=== PATIENT | male | born 1965 | race Caucasian/White ===

== ENCOUNTER 2017-06-26 15:42 | Emergency (ER) | payer BC ==
[2017-06-26 16:32] VITALS: BP 122/78
[2017-06-26] MEDS ORDERED: DOXYcycline CAP(*) 100 MG PO ONE (16:45)
--- NOTE | 2017-06-26 17:19 | UC ---
General HPI - HPI Summary HPI Summary: TODAY [id number] TICK FROM LEFT AXILLA. NO FEVER. NO JOINT PAIN. NO RASHES. TICK MAY HAVE BEEN THERE FOR TWO DAYS. - History of Current Complaint Chief Complaint: CRISTELAkin Stated Complaint: TICK Time Seen by Provider: 06/26/17 16:20 Hx Obtained From: Patient Onset/Duration: Sudden Onset, Lasting Days, Resolved Onset Severity: Mild Current Severity: None Pain Intensity: 0 Associated Signs & Symptoms: Negative: Abdominal Pain, Cough, Chest Pain, Dizziness, Fever, Headache, Nausea, Syncope, Trauma - Allergy/Home Medications Allergies/Adverse Reactions: Allergies Allergy/AdvReac Type Severity Reaction Status Date / Time No Known Allergies Allergy Verified 06/26/17 16:26 Home Medications: Home Medications NK [No Home Medications Reported] 06/26/17 [History Confirmed 06/26/17] PMH/Surg Hx/FS Hx/Imm Hx Previously Healthy: Yes - Surgical History Surgical History: Yes Surgery Procedure, Year, and Place: KNEE SURGERY AGE 16 - Family History Known Family History: Negative: Blood Disorder - Social History Occupation: Employed Full-time Lives: With Family Alcohol Use: Weekly Substance Use Type: None Smoking Status (MU): Current Some Day Smoker Type: Cigars Review of Systems Constitutional: Negative Skin: Rash - TICK BITE, TICK REMOVED DYNAMIC BALANCER, LEFT AXILLA Eyes: Negative ENT: Negative Respiratory: Negative Cardiovascular: Negative Gastrointestinal: Negative Genitourinary: Negative Motor: Negative Neurovascular: Negative Musculoskeletal: Negative Neurological: Negative Psychological: Negative Is Patient Immunocompromised?: No All Other Systems Reviewed And Are Negative: Yes Physical Exam Triage Information Reviewed: Yes Appearance: Well-Appearing, No Pain Distress, Well-Nourished Vital Signs: Initial Vital Signs Temp 98.9 F 06/26/17 16:26 Pulse 79 06/26/17 16:26 Resp 18 06/26/17 16:26 BP 122/78 06/26/17 16:26 Pulse Ox 97 06/26/17 16:26 Vital Signs Reviewed: Yes Eye Exam: Normal ENT Exam: Normal ENT: Positive: Normal ENT inspection, TMs normal Dental Exam: Normal Neck exam: Normal Neck: Positive: Supple, Nontender Respiratory Exam: Normal Respiratory: Positive: Chest non-tender, Lungs clear, Normal breath sounds, No respiratory distress, No accessory muscle use Cardiovascular Exam: Normal Cardiovascular: Positive: RRR, No Murmur, Pulses Normal, Brisk Capillary Refill Abdominal Exam: Normal Musculoskeletal Exam: Normal Musculoskeletal: Positive: Strength Intact, ROM Intact Neurological Exam: Normal Psychological Exam: Normal Skin: Positive: rashes - TICK REMOVED DYNAMIC BALANCER 0.3CM X 0.3CM SCAR LEFT AXILLA WHERE TICK HAD BEEN EMBEDDED Course/Dx - Differential Dx - Multi-Symptom Differential Diagnoses: Metabolic Abnormality, Sepsis Provider Diagnoses: TICK BITE PROPHYLAXIS Discharge - Discharge Plan Condition: Stable Disposition: HOME Patient Education Materials: Lyme Disease (ED), Tick Bite (ED) Referrals: Matthieu Lazo DO [Primary Care Provider] - Images Front/Back of Body, Lg ([place]): 1 - TICK REMOVED DYNAMIC BALANCER 0.3CM X 0.3CM SCAR LEFT AXILLA WHERE TICK HAD BEEN EMBEDDED
== END 2017-06-26 17:05 | disposition home or self-care (01) ==
LOC: UCCORT 15:42
DX: S40.862A Insect bite (nonvenomous) of left upper arm, initial encounter (principal); F17.210 Nicotine dependence, cigarettes, uncomplicated; W57.XXXA Bitten or stung by nonvenomous insect and other nonvenomous arthropods, initial encounter
CPT/HCPCS: 99202; A9270-GY; G0463